=== PATIENT | female | born 1940 | race Caucasian/White ===

== ENCOUNTER 2021-04-22 19:14 | Emergency (ER) | payer MEDICARE, SELFPAY ==
[~2021-04-22] VITALS: Ht 160 cm; Wt 72.6 kg
--- NOTE | 2021-04-22 19:17 | NUR ---
Placed in room 6 . Placed on cardiac cath rn, blood pressure machine and pulse oximeter. To gown for exam. Side rails up. Report given to Lisa CANCINO.
[2021-04-22 19:18] VITALS: BP_SYST 137
--- NOTE | 2021-04-22 19:18 | NUR ---
PATIENT BROUGHT IN ALS FROM HOME FOR COUGH AND FEVER X 2 DAYS WITH LIGHTHEADEDNESS AND WEAKNESS. PATIENT AOX4. PATIENT REPORTS BEING DOUBLE VACCINATED WITH [employer]. PATIENT IS FEBRILE AT 101 ORAL, HR 127 AND RR32 SAT95% RA. DENIES ANY PAIN AT THIS TIME.
--- NOTE | 2021-04-22 19:20 | NUR ---
# 20 gauge angiocath placed to LAC. Use of asceptic technique. Opsite placed over site. Blood return noted. Blood for lab drawn from site. Flushed with 10 cc of normal saline. No evidence of infiltration noted. Patient tolerated well.
[2021-04-22] MEDS ORDERED: ACETAMINOPHEN 650 MG/20.3 ML UDC PO ONE (19:30)
[2021-04-22] MEDS ORDERED: AZITHROMYCIN 500 MG in NS 250 ML IV ONE (19:30)
--- NOTE | 2021-04-22 19:33 | NUR ---
COVID swab performed at bedside and sent to lab
--- NOTE | 2021-04-22 19:36 | NUR ---
ER at bedside examining patient.
[2021-04-22] MEDS ORDERED: AZITHROMYCIN 500 MG/VIAL (ZITHROMAX) IV ONE (19:41)
--- NOTE | 2021-04-22 19:42 | NUR ---
FLU SWAB PERFORMED AT BEDSIDE AND SENT TO LAB
--- NOTE | 2021-04-22 19:48 | NUR ---
RADIOLOGY AT BEDSIDE FOR CHEST XRAY
[2021-04-22 20:10] LABS: BASOPHILS # (AUTO) 0.1 K/uL (0.0-0.2); BASOPHILS % (AUTO) 0.4 % (0.0-2.0); HEMATOCRIT 35.5 % (36-48); HEMOGLOBIN 12.2 g/dL (12.0-16.0); LYMPHOCYTES # (AUTO) 0.4 K/uL (1.0-5.5); LYMPHOCYTES % (AUTO) 2.6 % (20.5-51.5); MEAN CORPUSCULAR HEMOGLOBIN 32 pg (27-31); MEAN CORPUSCULAR HGB CONC 34 % (32-36); MEAN CORPUSCULAR VOLUME 93 fL (79.0-98.0); MONOCYTES # (AUTO) 0.4 K/uL (0.0-1.0); MONOCYTES % (AUTO) 2.4 % (1.7-9.3); NEUTROPHILS # (AUTO) 14.3 K/uL (1.8-7.7); NEUTROPHILS % (AUTO) 94.6 % (40.0-70.0); PLATELET COUNT (AUTO) 203 K/uL (130-430); RED BLOOD CELL COUNT(AUTO) 3.84 MIL/uL (4.2-6.2); RED CELL DISTRIBUTION WIDTH 14.8 % (9.0-15.0); WHITE BLOOD COUNT (AUTO) 15.1 K/uL (4.8-10.8)
[2021-04-22 20:36] LABS: ANION GAP 12 (5-15); CALCIUM 8.9 mg/dL (8.4-11.0); CHLORIDE 92 mmol/L (98-107); CREATININE 1.17 mg/dL (0.55-1.30); GLUCOSE 145 mg/dL (70-99); POTASSIUM 3.2 mmol/L (3.5-5.1); SODIUM SERUM 125 mmol/L (136-145); TOTAL BILIRUBIN 0.6 mg/dL (0.0-1.0); UREA NITROGEN, BLOOD 15 mg/dL (8-21)
[2021-04-22 20:37] LABS: ALANINE AMINOTRANSFERASE 23 U/L (12-78); ASPARTATE AMINOTRANSFERASE 23 U/L (10-37)
[2021-04-22 20:50] LABS: PROTHROMBIN TIME 10.8 SECS (9.5-12.5)
--- NOTE | 2021-04-22 20:58 | NUR ---
TEMP 100.2 ORAL. NOTIFIED
[2021-04-22] MEDS ORDERED: NACL 0.9% 1,000 ML IV ONE (21:15)
--- NOTE | 2021-04-22 21:25 | NUR ---
PATIENT URINATED IN COMMODE. PATIENT TOLERATED WELL. URINE DIP COMPLETED AND GIVEN TO .
[2021-04-22 21:55] LABS: BILIRUBIN,URINE NEGATIVE (NEGATIVE); BLOOD, URINE 3+ (NEGATIVE); COLOR,URINE YELLOW (YELLOW); GLUCOSE,URINE NEGATIVE (NEGATIVE); KETONES,URINE NEGATIVE (NEGATIVE); LEUKOCYTE ESTERASE ,URINE 2+ (NEGATIVE); NITRITE, URINE POSITIVE (NEGATIVE); PROTEIN URINE 2+ (NEGATIVE); UROBILINOGEN,URINE 0.2 (0.2-1.0)
[2021-04-22] MEDS ORDERED: cefTRIAXone 1 GM in D5W 50 ML IV ONE (22:00)
[2021-04-22 22:03] LABS: CLARITY/URINE HAZY (CLEAR)
[2021-04-22 22:05] LABS: BACTERIA,URINE MODERATE /HPF (None Seen); RBC,URINE 0-3 /HPF (0-3); WBC,URINE 20-50 /HPF (0-3)
[2021-04-22 22:06] LABS: MUCUS,URINE None Seen /LPF (None Seen)
[2021-04-22] MEDS ORDERED: cefTRIAXone 1 GM VIAL ONE (23:15)
--- NOTE | 2021-04-22 23:47 | NUR ---
Patient resting quietly. Daughter at bedside. No acute distress noted. Vital signs within normal range.
--- NOTE | 2021-04-23 00:32 | NUR ---
Patient to be transferred to [facility]. Is being transferred due to higher level of care. Receiving facility has accepting physician and available space. ER physician has signed transfer form. Patient or responsible green party has agreed to transfer and signed form. Patient belongings inventoried and will be sent with patient. Copy of nursing notes, lab reports, EKG, Physicians Orders and X-rays to be sent with patient. Report called to BARAK King at receiving facility. Receiving physician is Dr. Carmichael. [facility] ambulance service has been called for transfer. ETA is [id number]
[2021-04-23 00:53] VITALS: BP_SYST 102
--- NOTE | 2021-04-23 00:53 | NUR ---
amb[facility]erve given report. vss. no acute distress.
== END 2021-04-23 00:53 | disposition short-term general hospital (02) ==
LOC: SED 19:14
DX: A41.9 Sepsis, unspecified organism (principal); N39.0 Urinary tract infection, site not specified; I10 Essential (primary) hypertension; Z20.822 Contact with and (suspected) exposure to COVID-19
CPT/HCPCS: 36415; 71045; 80053; 81000; 82550; 83605; 83880; 84145; 84484; 85025; 85610; 85730; 86710; 87040; 87086; 87426; 93005; 96361; 96365; 96367; 99285; J0456; J0696; J7030